=== PATIENT | female | born 1950 | race Two or more races ===

== ENCOUNTER 2018-12-14 12:41 | Inpatient (IN) | payer SELFPAY ==
[~2018-12-14] VITALS: Ht 152.4 cm; Wt 71.2 kg
[2018-12-14] MEDS ORDERED: ONDANSETRON HCL 4MG/2ML INJ IV STA (15:12)
[2018-12-14] MEDS ORDERED: FAMOTIDINE 20MG/2ML VIAL IV STA (15:12)
[2018-12-14] MEDS ORDERED: SODIUM CHLORIDE 0.9% 1,000 ML IV ONE (15:12)
[2018-12-14] MEDS ORDERED: DIATR MEGLU/DIATRIZOATE SOLN 120ML ONE (15:27)
[2018-12-14 16:02] LABS: BASOPHILS % 0.3 % (0.0-2.0); EOSINOPHILS % 1.3 % (0.0-5.0); HEMATOCRIT. 40.5 % (36.0-48.0); HEMOGLOBIN. 13.6 g/dL (12.0-16.0); LYMPHOCYTES % 27.3 % (20.0-50.0); MEAN CORPUSCULAR HEMOGLOBIN 31.1 pg (28.0-32.0); MEAN CORPUSCULAR VOLUME 92.8 fL (81.0-99.0); MEAN PLATELET VOLUME 9.1 fl (7.4-10.4); MONOCYTES % 9.3 % (2.0-8.0); NEUTROPHILS % 61.8 % (40.0-76.0); PLATELET 164 x1000/uL (130-400); RED BLOOD CELL COUNT 4.36 mill/uL (4.2-5.4)
[2018-12-14 16:08] LABS: PROTHROMBIN TIME 10.1 sec (9.1-11.1)
[2018-12-14 16:09] LABS: CHLORIDE 102 mEq/L (98-107)
[2018-12-14 17:57] LABS: CLARITY URINE CLEAR (CLEAR); COLOR URINE YELLOW (YELLOW); KETONES URINE TRACE (NEGATIVE); LEUKOCYTE ESTERASE URINE NEGATIVE (NEGATIVE); NITRITE URINE NEGATIVE (NEGATIVE); OCCULT BLOOD URINE NEGATIVE (NEGATIVE); PH URINE 6.5 (4.5-8.0); PROTEIN URINE NEGATIVE (NEGATIVE); SPECIFIC GRAVITY URINE 1.013 (1.005-1.030)
[2018-12-14] MEDS ORDERED: ONDANSETRON HCL 4MG/2ML INJ IV ONE (20:15)
[2018-12-14] MEDS ORDERED: MORPHINE SULFATE 4 MG/ML CPJ (NOT FOR IM USE) IV ONE (20:15)
[2018-12-14 22:00] VITALS: BP_SYST 116; BP_SYST 118; BP_DIAS 74; BP_DIAS 80
[2018-12-14 23:00] VITALS: BP 116/74
[2018-12-15] VITALS: BP 116/74
[2018-12-15] MEDS ORDERED: ONDANSETRON HCL 4MG/2ML INJ IV PRN (00:15)
[2018-12-15] MEDS: DEXT 5%/0.45% NACL KCL 20MEQ/L 1,000 ML IV SCH ×3 (03:26→22:00)
[2018-12-15 04:00] VITALS: BP 140/78
[2018-12-15] MEDS: MORPHINE SULFATE 4 MG/ML CPJ (NOT FOR IM USE) IV PRN ×2 (04:59→15:10)
[2018-12-15 08:00] VITALS: BP 106/66
[2018-12-15] MEDS: PANTOPRAZOLE SODIUM 40 MG/VIAL IV SCH (08:34)
[2018-12-15 11:42] VITALS: BP 108/72
[2018-12-15] MEDS ORDERED: HYDR25TA MT (14:29)
[2018-12-15] MEDS ORDERED: UMEC62.5 INH (14:29)
[2018-12-15] MEDS ORDERED: ARIP30TA2 MT (14:29)
[2018-12-15] MEDS ORDERED: ALBU90AE INH (14:29)
[2018-12-15] MEDS ORDERED: ANAS1TAB7 MT (14:29)
[2018-12-15] MEDS ORDERED: BISACODYL 10MG SUPP PR PRN (14:30)
[2018-12-15] MEDS ORDERED: NA PHOS,M-B/NA PHOS,DI-BA ENEMA 118ML PR PRN (14:30)
[2018-12-15] MEDS ORDERED: IPRATROPIUM/ALBUTEROL 0.5-3(2.5)MG/3ML NEB HHN PRN (14:30)
[2018-12-15] MEDS ORDERED: BISACODYL 10MG SUPP PR SCH (14:30)
[2018-12-15] MEDS ORDERED: ALBUTEROL (0.5%) 2.5MG/0.5ML NEB HHN PRN (15:00)
[2018-12-15] MEDS ORDERED: UMECLIDINIUM BROMIDE 1 INH BLST.W.DEV IH PRN (15:00)
[2018-12-15 15:40] VITALS: BP 121/74
[2018-12-15] MEDS: ARIPIPRAZOLE 10MG TABLET PO SCH (16:20)
[2018-12-15] MEDS: HYDROCHLOROTHIAZIDE 25MG TABLET PO SCH (16:20)
[2018-12-15] MEDS: UMECLIDINIUM BROMIDE 1 INH BLST.W.DEV IH SCH (17:00)
[2018-12-15] MEDS: ANASTROZOLE 1 MG TABLET PO SCH (17:11)
[2018-12-15 20:00] VITALS: BP 117/75
[2018-12-16] VITALS: BP 134/83
[2018-12-16 04:00] VITALS: BP 117/67
[2018-12-16 08:00] VITALS: BP 132/80
[2018-12-16 08:36] LABS: BASOPHILS % 0.4 % (0.0-2.0); EOSINOPHILS % 1.3 % (0.0-5.0); HEMATOCRIT. 34.4 % (36.0-48.0); HEMOGLOBIN. 11.4 g/dL (12.0-16.0); LYMPHOCYTES % 24.9 % (20.0-50.0); MEAN CORPUSCULAR HEMOGLOBIN 30.6 pg (28.0-32.0); MEAN CORPUSCULAR VOLUME 92.1 fL (81.0-99.0); MEAN PLATELET VOLUME 8.6 fl (7.4-10.4); MONOCYTES % 8.8 % (2.0-8.0); NEUTROPHILS % 64.6 % (40.0-76.0); PLATELET 158 x1000/uL (130-400); RED BLOOD CELL COUNT 3.74 mill/uL (4.2-5.4); RED CELL DISTRIBUTION WIDTH 12.8 % (11.6-14.6)
[2018-12-16] MEDS ORDERED: DOCUSATE SODIUM 250MG CAPSULE PO SCH (09:00)
[2018-12-16] MEDS: DEXT 5%/0.45% NACL KCL 20MEQ/L 1,000 ML IV SCH (09:38)
[2018-12-16] MEDS: PANTOPRAZOLE SODIUM 40 MG/VIAL IV SCH (09:38)
[2018-12-16] MEDS: ANASTROZOLE 1 MG TABLET PO SCH (09:39)
[2018-12-16] MEDS: ARIPIPRAZOLE 10MG TABLET PO SCH (09:39)
[2018-12-16] MEDS: HYDROCHLOROTHIAZIDE 25MG TABLET PO SCH (09:39)
[2018-12-16] MEDS ORDERED: LACTULOSE 20G/30ML UDC PO NR (11:45)
[2018-12-16 12:00] VITALS: BP 140/84
[2018-12-16 16:00] VITALS: BP 144/92
[2018-12-16] MEDS: UMECLIDINIUM BROMIDE 1 INH BLST.W.DEV IH SCH (17:37)
[2018-12-16 17:58] VITALS: BP 144/92
== END 2018-12-16 18:35 | disposition home or self-care (01) | DRG 247 ==
LOC: ER 14:01 → 6EST 17:27 → ENRESERV 19:17 → 6EST 21:33
PROVIDERS: ADMIT Internal Medicine; ATTEND Internal Medicine
DX: K56.7 Ileus, unspecified (principal); J44.9 Chronic obstructive pulmonary disease, unspecified; E66.9 Obesity, unspecified; F32.9 Major depressive disorder, single episode, unspecified; I10 Essential (primary) hypertension; E87.6 Hypokalemia; Z85.3 Personal history of malignant neoplasm of breast; Z90.710 Acquired absence of both cervix and uterus; Z68.30 Body mass index [BMI] 30.0-30.9, adult; Z71.3 Dietary counseling and surveillance
CPT/HCPCS: 36415; 71045; 74018; 74176; 80048; 84484; 93005; 96361; 96374; 96375; 96376; 99285; C9113; J2270; J2405; J3490; J7030; J7620; Q9963